=== PATIENT | male | born 1990 | race Two or more races ===

== ENCOUNTER 2017-08-17 10:26 | Emergency (ER) | payer OTHER ==
--- NOTE | 2017-08-17 10:39 | EDPHY ---
H & P Time Seen by Provider: 08/17/17 10:34 HPI/ROS: CHIEF COMPLAINT: Abnormal laboratory studies HISTORY OF PRESENT ILLNESS: 27-year-old male presents to the emergency department with [employer] from the skilled nursing with report of abnormal laboratory studies. Patient has a known history of cirrhosis since age 13. The patient says that he was complaining of some abdominal pain and they ruben some blood work yesterday which was abnormal and he was sent to the emergency department for evaluation. The patient just ate breakfast. He denies any abdominal pain currently. He denies feeling weak. He states that his urine has been very dark. He denies back pain. Denies chest pain or difficulty breathing. He denies any reported trauma. Appetite has been normal. He denies any weight loss. REVIEW OF SYSTEMS: Constitutional: No fever, no chills. Eyes: No double or blurry vision. ENT: No sore throat. Respiratory: No cough, no shortness of breath. Cardiac: No chest pain. Gastrointestinal: Abdominal pain as above. No vomiting or diarrhea. Genitourinary: Dark colored urine. No dysuria. Musculoskeletal: No neck or back pain. Skin: No rashes. Neurological: No headache. (Kandis Castro) Past Medical/Surgical History: Cirrhosis age 13 (Gloria,Kandis M) Social History: Currently in [facility] (Kandis Castro M) Physical Exam: General Appearance: Alert, no distress. Appears jaundiced with icteric sclera. Eyes: Pupils equal and round. Extraocular motions are all intact. Icteric sclera. ENT: Mouth: Mucous membranes moist. Respiratory: No wheezing, rhonchi, or rales, lungs are clear to auscultation. Cardiovascular: Regular rate and rhythm. Gastrointestinal: Abdomen is soft and nontender, no masses, no rebound or guarding, bowel sounds normal. Well-healed midline abdominal incision. No CVA tenderness bilaterally. Neurological: Alert and oriented x 3, cranial nerves II through XII grossly intact Skin: Warm and dry, no rashes. Musculoskeletal: Nontender to palpate along the cervical, thoracic or lumbar spine. Neck is supple. Extremities: Full range of motion and no peripheral edema. Psychiatric: Patient is oriented X 3, there is no agitation. (Kandis Castro M) Constitutional: Initial Vital Signs Temperature (C) 36.6 C 08/17/17 10:43 Heart Rate 67 08/17/17 10:43 Respiratory Rate 16 08/17/17 10:43 Blood Pressure 116/78 08/17/17 10:43 O2 Sat (%) 100 08/17/17 10:43 O2 Delivery Mode Room Air Medical Decision Making - Diagnostics Imaging: Discussed imaging studies w/ call center coordinator Radiologist - Diagnostics Imaging Results: Imaging Impressions Abdomen Ultrasound 08/17/17 11:23 Impression: 1. Limited assessment of the gallbladder, with air suspected within the decompressed gallbladder. This could be related to a stent or less likely emphysematous cholecystitis. Clinical correlation is recommended. 2. Nodular liver with no appreciable mass. 3. Additional findings as above. Findings discussed with Kandis Castro PA-C, 08/17/2017 at 12:41. Abdomen CT 08/17/17 12:56 Impression: 1. Apparent mild wall thickening of the 2nd portion duodenum, suspicious for inflammation/infection. 2. Discontiguous areas of biliary dilatation, which could be related to peristalsing cholangitis, or other etiology. 3. Nonspecific prominent nodes. Follow-up CT is recommended in 3 months. 4. Biliary stent, with mild distention of the distal common duct, with more normal caliber of the superior common bile duct. 5. Additional findings as above. Findings discussed with Kandis Castro PA-C, 08/17/2017 at 14:03. ED Course/Re-evaluation: The patient was evaluated and managed by the physician's assistant associate full professor. My cosignature indicates that I reviewed the chart and I agree with the findings and plan of care as documented. I am the secondary supervising physician. ( Millie Alarcon) 27-year-old male presents to the emergency department with abnormal laboratory studies. He is coming from the skilled nursing. Laboratory studies reveal elevated white blood cell count. His hemoglobin is 10. Conjugated bilirubin is 6.8. Patient's records were reviewed in [facility] and in March of 2017 the patient had alcohol phosphatase of nearly 1200, ALT of 57, AST of 113 in his total bilirubin was 6.8. I spoke with the on-call hospitalist, Dr. Enzo Oviedo, who came to evaluate the patient does not feel that he requires admission. He feels that this is all chronic. He thinks his abdominal pain is likely related to constipation. I recommended the patient take magnesium citrate. I also spoke with the on-call teacher's aide, Dr. Malave, he recommended that the patient could be discharged and follow up with his teacher's aide. The case was discussed with Dr. Millie Alarcon, secondary supervising physician , who did not directly evaluate the patient but agrees with treatment and plan. (Kandis Castro) Differential Diagnosis: Including but not limited to cirrhosis, primary biliary sclerosis, hepatitis, sepsis, liver failure (Kandis Castro) - Data Points Laboratory Results: Laboratory Results 08/17/17 10:50 08/17/17 10:50 08/17/17 08/17/17 08/17/17 10:50 10:50 10:50 WBC 10.14 10^3/uL H 10^3/uL (3.80-9.50) RBC 3.97 10^6/uL L 10^6/uL (4.40-6.38) Hgb 10.5 g/dL L g/dL (13.7-17.5) Hct 30.8 % L % (40.0-51.0) MCV 77.6 fL L fL (81.5-99.8) MCH 26.4 pg L pg (27.9-34.1) MCHC 34.1 g/dL g/dL (32.4-36.7) RDW 23.0 % H % (11.5-15.2) Plt Count 461 10^3/uL H 10^3/uL (150-400) MPV 10.9 fL fL (8.7-11.7) Neut % (Auto) 56.4 % % (39.3-74.2) Lymph % (Auto) 22.5 % % (15.0-45.0) [place] % (Auto) 9.6 % % (4.5-13.0) Eos % (Auto) 10.5 % H % (0.6-7.6) Baso % (Auto) 0.7 % % (0.3-1.7) Nucleat RBC Rel Count 0.0 % % (0.0-0.2) Absolute Neuts (auto) 5.73 10^3/uL 10^3/uL (1.70-6.50) Absolute Lymphs (auto) 2.28 10^3/uL 10^3/uL (1.00-3.00) Absolute Monos (auto) 0.97 10^3/uL H 10^3/uL (0.30-0.80) Absolute Eos (auto) 1.06 10^3/uL H 10^3/uL (0.03-0.40) Absolute Basos (auto) 0.07 10^3/uL 10^3/uL (0.02-0.10) Absolute Nucleated RBC 0.00 10^3/uL 10^3/uL (0-0.01) Immature Gran % 0.3 % % (0.0-1.1) Immature Gran # 0.03 10^3/uL 10^3/uL (0.00-0.10) Platelet Estimate ADEQUATE (ADEQ) Tear Drop Cells 3+ H Smear Review By Pending PT 15.4 SEC H SEC (12.0-15.0) INR 1.20 H (0.83-1.16) APTT 40.5 SEC H SEC (23.0-38.0) Sodium 143 mEq/L mEq/L (135-145) Potassium 4.7 mEq/L mEq/L (3.5-5.2) Chloride 106 mEq/L mEq/L (97-110) Carbon Dioxide 25 mEq/l mEq/l (22-31) Anion Gap 12 mEq/L mEq/L (8-16) BUN 9 mg/dL mg/dL (7-23) Creatinine 0.5 mg/dL L mg/dL (0.7-1.3) Estimated GFR > 60 Glucose 82 mg/dL mg/dL (70-100) Calcium 8.7 mg/dL mg/dL (8.5-10.4) Total Bilirubin 7.6 mg/dL H mg/dL (0.1-1.4) Conjugated Bilirubin 6.4 mg/dL H mg/dL (0.0-0.5) Unconjugated Bilirubin 1.2 mg/dL H mg/dL (0.0-1.1) AST 209 IU/L H IU/L (17-59) ALT 92 IU/L H IU/L (21-72) Alkaline Phosphatase 1292 IU/L H IU/L (38-126) Total Protein 7.9 g/dL g/dL (6.3-8.2) Albumin 3.3 g/dL L g/dL (3.5-5.0) Lipase 141 IU/L IU/L (23-300) Departure - Departure Disposition: Home, Routine, Self-Care Clinical Impression: Jaundice Cirrhosis Qualifiers: Hepatic cirrhosis type: unspecified hepatic cirrhosis Ascites presence: without ascites Qualified Code(s): K74.60 - Unspecified cirrhosis of liver Constipation Qualifiers: Constipation type: unspecified constipation type Qualified Code(s): K59.00 - Constipation, unspecified Condition: Good Instructions: Constipation (ED), Cirrhosis (ED), Jaundice (ED) Additional Instructions: Follow up with Gastroenterology. You have evidence of constipation on your CT scan and you should try magnesium citrate. Return to the emergency department if you develop increasing pain, fever, vomiting, or if you feel worse in any way. Nolvia ricardo de seguimiento con gastroenterologia. Es evidente que tiene estrenimiento katelynn marie tomografia computarizada y debe probar el citrato de magnesio. Regrese al departamento de emergencias si presenta aumento de dolor, fiebre, vomitos o si se siente peor de cualquier manera. Referrals: Lokesh Malave MD [Medical Doctor] - As per Instructions Print Language: Arabic
[2017-08-17 10:55] LABS: PLATELET COUNT 461 10^3/uL (150-400)
[2017-08-17 11:04] LABS: INR 1.2 (0.83-1.16); PROTIME(PATIENT) 15.4 SEC (12.0-15.0)
[2017-08-17] MEDS ORDERED: IOPAMIDOL (ISOVUE-300) 100 ML BTL ONE (13:19)
[2017-08-17 15:48] VITALS: BP 114/78
--- NOTE | 2017-08-17 16:21 | GCON ---
[f rep st] CONSULTATION DATE OF CONSULTATION: 08/17/2017 The patient is a 27-year-old gentleman, with a history of cirrhosis, who presents from skilled nursing with abdo neena pain. He had some labs drawn there yesterday which revealed mild leukocytosis, elevated biliru bin, elevated alkaline phosphatase at 1200. I reviewed some labs in [facility], and his alkaline phospha tase a couple months ago was 1175. The patient complains of abdominal pain. He has not had increasing abdominal girth. He has not had fever. He has not had chills, nausea, vomiting, diarrhea. He does not have lower extremity edema. He is not eating more. He is not confused. The history is obtained through a interpreter for the deaf. The patient is uncertain as to why he has cirrhosis. It does not appear to be secondary to alcohol. He has had since he was age 15. The patient has a biliary stent and appears to have a TIPS. He neves s not recall having these done. REVIEW OF SYSTEMS: Complete 10-point review of systems conducted, negative except as noted in the HP I. 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 ALLERGIES: Unrecorded. HOME MEDICATIONS: None. SOCIAL HISTORY: No tobacco, no alcohol. Currently in detention. Does not speak Yemeni. FAMILY HISTORY: Reviewed and unremarkable. No one else has jaundice. PHYSICAL EXAMINATION: VITAL SIGNS: Temp 36.6, blood pressure 116/78, pulse 67, breathing 16 times a minute, 100% on room air. GENERAL: Thin. No acute distress. HEENT: Sclerae are anicteric. Oroph arynx is clear. Mucous membranes are moist. NECK: Supple, without lymphadenopathy or JVD. LUNGS: Clear to auscultation bilaterally. ABDOMEN: Soft, nontender, nondistended. There is no ascites. There is no rebound or guarding. EXTREMITIES: There is no lower extremity edema. Calves are nonten caroline. SKIN: Without rash. NEUROLOGIC: Nonfocal. LABORATORY DATA: Sodium 143, potassium 4.7, chloride 106, bicarb 25, BUN 9, creatinine 0.5, bilirubi n is 7.6, predominantly conjugated. AST is 209, ALT is 92, alkaline phosphatase is 1292, albumin is 3.3. INR is 1.2. White count 10, hematocrit 30.8 with a low MCV, platelets are 461,000. Hep serolo gies are negative. IMAGING: Abdominal CT, interpreted by me, shows evidence of prior TIPS, a biliary stent, and constip ation. There is no ascites. Also noted is pneumobilia with a biliary stent. He has an abdominal ul trasound showing limited assessment of the gallbladder, air suspected in decompressed gallbladder, li didier related to stent. I discussed the case with Kandis Prado in the emergency department. ASSESSMENT AND PLAN: A 27-year-old gentleman with chronic liver disease, here with abdominal pain. 1. Abdominal pain. I suspect this is secondary to constipation. He has a fair amount of constipati on on his abdominal CT. His liver disease appears advanced but stable with no intraabdominal problem s. There are several comments on his hepatobiliary issue but he has a stent in place, and I think he does not have evidence of an intraabdominal infection. 2. Liver disease. The patient appears compensated. Recommend routine followup. 3. Constipation. I have advised them to give him some MiraLAX or mag citrate in the emergency depar tment. 4. Leukocytosis, likely secondary constipation and/or liver disease. It is nonspecific. The patien t otherwise appears well. DISPOSITION: I believe the patient is safe to discharge from the hospital. It is not clear that adm ission will serve anything in evaluating his chronic condition. I have discussed with Kandis Smith. /[id number]/MODL
== END 2017-08-17 15:48 | disposition home or self-care (01) ==
LOC: EDBD 10:26 → EEVIPCON 10:26
DX: K74.60 Unspecified cirrhosis of liver (principal); K59.00 Constipation, unspecified
CPT/HCPCS: Q9967

== ENCOUNTER 2017-08-22 16:22 | Emergency (ER) | payer OTHER ==
[2017-08-22 17:21] LABS: PLATELET COUNT 402 10^3/uL (150-400)
--- NOTE | 2017-08-22 17:29 | EDPHY ---
H & P Stated Complaint: jaundice Time Seen by Provider: 08/22/17 16:38 HPI/ROS: CHIEF COMPLAINT: Jaundice HISTORY OF PRESENT ILLNESS: The patient is [facility] to the emergency department by the [facility] for evaluation of jaundice and reported abdominal pain. The patient reports that his abdominal pain has entirely resolved. The patient was seen in the emergency department earlier in the week for abnormal liver function test. During that time he underwent a CT scan of the abdomen pelvis which does demonstrate chronic liver disease, biliary stent and constipation. The patient's prior records were reviewed and his liver function abnormalities are chronic and at baseline. The patient was advised to follow up as an outpatient with Gastroenterology. It is unclear exactly why the patient was sent back to the emergency department tonight as the patient's pain has entirely resolved. REVIEW OF SYSTEMS: A comprehensive 10 point review of systems is otherwise negative aside from elements mentioned in the history of present illness. Source: Patient, Family - Personal History Current Tetanus/Diphtheria Vaccine: Unsure Current Tetanus Diphtheria and Acellular Pertussis (TDAP): Unsure - Medical/Surgical History Hx Asthma: No Hx Chronic Respiratory Disease: No Hx Diabetes: No Hx Cardiac Disease: No Hx Renal Disease: No Hx Cirrhosis: Yes Hx Alcoholism: No Hx HIV/AIDS: No Hx Splenectomy or Spleen Trauma: No Other PMH: spleen injury, cirrhosis - Social History Smoking Status: Current every day smoker - Physical Exam Exam: General Appearance: Alert, no distress Eyes: Pupils equal and round no pallor or injection ENT, Mouth: Mucous membranes moist Respiratory: There are no retractions, lungs are clear to auscultation Cardiovascular: Regular rate and rhythm Gastrointestinal: Abdomen is soft and nontender, no masses, bowel sounds normal Neurological: A&O, normal motor function, normal sensory exam, normal cranial nerves Skin: Jaundice Musculoskeletal: Neck is supple nontender Extremities: symmetrical, full range of motion Constitutional: Initial Vital Signs Temperature (C) 36.4 C 08/22/17 16:26 Heart Rate 70 08/22/17 16:26 Respiratory Rate 16 08/22/17 16:26 Blood Pressure 112/63 08/22/17 16:26 O2 Sat (%) 99 08/22/17 16:26 O2 Delivery Mode Room Air Allergies/Adverse Reactions: No Known Allergies Allergy (Unverified 08/22/17 16:25) Home Medications: Medication Instructions Recorded NK [No Known Home Meds] 08/22/17 Medical Decision Making ED Course/Re-evaluation: I reviewed the patient's past medical records, his CT scan and laboratory testing. Repeat serum chemistries and liver function test were obtained and there is no evidence of any worsening LFT abnormalities. The patient's abdominal examination is benign. At this point time I am going to repeat the prior recommendation that the patient follow up as an outpatient with Gastroenterology. There is not an indication for hospitalization. - Data Points Laboratory Results: Laboratory Results 08/22/17 17:07 08/22/17 17:07 08/22/17 08/22/17 17:07 17:07 WBC 11.67 10^3/uL H 10^3/uL (3.80-9.50) RBC 3.40 10^6/uL L 10^6/uL (4.40-6.38) Hgb 9.1 g/dL L g/dL (13.7-17.5) Hct 27.1 % L % (40.0-51.0) MCV 79.7 fL L fL (81.5-99.8) MCH 26.8 pg L pg (27.9-34.1) MCHC 33.6 g/dL g/dL (32.4-36.7) RDW 24.6 % H % (11.5-15.2) Plt Count 402 10^3/uL H 10^3/uL (150-400) Sodium 138 mEq/L mEq/L (135-145) Potassium 5.0 mEq/L mEq/L (3.5-5.2) Chloride 105 mEq/L mEq/L (97-110) Carbon Dioxide 24 mEq/l mEq/l (22-31) Anion Gap 9 mEq/L mEq/L (8-16) BUN 13 mg/dL mg/dL (7-23) Creatinine 0.5 mg/dL L mg/dL (0.7-1.3) Estimated GFR > 60 Glucose 81 mg/dL mg/dL (70-100) Calcium 8.6 mg/dL mg/dL (8.5-10.4) Total Bilirubin 6.0 mg/dL H mg/dL (0.1-1.4) Conjugated Bilirubin 5.1 mg/dL H mg/dL (0.0-0.5) Unconjugated Bilirubin 0.9 mg/dL mg/dL (0.0-1.1) AST 174 IU/L H IU/L (17-59) ALT 89 IU/L H IU/L (21-72) Alkaline Phosphatase 950 IU/L H IU/L (38-126) Total Protein 7.3 g/dL g/dL (6.3-8.2) Albumin 3.1 g/dL L g/dL (3.5-5.0) Lipase 210 IU/L IU/L (23-300) Departure - Departure Disposition: Home, Routine, Self-Care Clinical Impression: Jaundice, Cirrhosis Condition: Good Instructions: Jaundice (ED) Additional Instructions: 1. You have chronically elevated liver function test which are not worsened. I recommend outpatient follow up with Gastroenterology. There is not an indication for hospitalization. Referrals: Ghanshyam Jo MD [Medical Doctor] - As per Instructions
[2017-08-22 17:55] VITALS: BP 109/63
== END 2017-08-22 17:54 | disposition home or self-care (01) ==
LOC: EEVIPCON 16:22
DX: K74.60 Unspecified cirrhosis of liver (principal); F17.200 Nicotine dependence, unspecified, uncomplicated